=== PATIENT | female | born 2000 | race Caucasian/White ===

== ENCOUNTER → 2019-10-06 | Outpatient (CLI) | payer OTHER ==
--- NOTE | 2019-10-06 13:58 | REP ---
TRIPLE PHASE BONE SCAN OF THE LOWER LEGS: Following the intravenous administration of 22 millicuries of technetium 99m MDP, patient's lower legs are imaged in the flow phase, blood pool phase, and 3-hour delayed phases of imaging in multiple projections. There is no abnormal blood flow or blood pool noted. There is symmetrical osseous activity bilaterally with no scintigraphic abnormality. No stress fracture is seen. IMPRESSION: Negative triple phase bone scan of the lower legs. Electronically Signed by Boo Alcazar MD 10/06/2019 11:06 P
== END ==
LOC: M RAD 09:45
PROVIDERS: ATTEND Physician Assistant Surgical
DX: M79.661 Pain in right lower leg (principal); M79.662 Pain in left lower leg
CPT/HCPCS: 78315; A9503

== ENCOUNTER → 2021-02-14 | Outpatient (CLI) | payer OTHER ==
--- NOTE | 2021-02-15 15:20 | SLEEPCENT ---
DATE: 02/15/2021 ORDERED BY: Karley Case Nocturnal polysomnography was performed for evaluation of sleep physiology in this patient with a history of excessive somnolence and nonrestorative sleep. There was 7 hours and 40 minutes of data reviewed. There was 343.5 minutes of sleep identified. Sleep latency was short at 4.5 minutes. REM latency was also short at 52 minutes. Sleep architecture was fairly well preserved with four REM cycles. There was a period of wake between 3 and 4:14, resulting in reduced sleep efficiency of 76.2%. The electrocardiogram showed a sinus rhythm with an average heart rate of 68 beats per minute. EEG showed normal waveforms for wake and sleep. There were 36 respiratory events identified of 10 seconds in duration or greater for an apnea-hypopnea index of 6.3. The events were obstructive, not exclusive to sleep stage. More frequent in the supine posture; however, the entire study was done in the supine position. Arousals from respiratory events occurred 1.4 times per hour, and some activity was appreciated in the limb EMG leads, but no trains of events were seen. IMPRESSION: Mild, possibly positional obstructive sleep apnea syndrome (G47.33). Apnea-hypopnea index 6.3. RECOMMENDATION: Sleep positioning retraining for avoidance of the supine posture may be sufficient. If the patient's symptoms persist, then referral back to the sleep disorder center for pressure therapy should be considered. In the interim, alcohol and sedative avoidance should be practiced and caution exercised during the operation of motor vehicles.
== END ==
LOC: M SLEEP 20:00
PROVIDERS: ATTEND Nurse Practitioner Family
DX: G47.33 Obstructive sleep apnea (adult) (pediatric) (principal)

== ENCOUNTER → 2021-05-16 | Outpatient (CLI) | payer OTHER ==
--- NOTE | 2021-05-16 09:42 | REP ---
INDICATION: RUQ PAIN. COMPARISON: None. TECHNIQUE: Right upper quadrant sonogram. FINDINGS: Scanning through the right upper quadrant of the abdomen demonstrates a normal sized, thin-walled gallbladder without evidence of stone or polyp. Common bile duct is normal measuring 0.4 cm in greatest diameter. No focal liver lesion is seen. Liver size is normal. No pancreatic abnormality is observed. No right renal abnormality is seen. There is no evidence of ascites. The right kidney measures 11.6 x 5.5 x 4.4 cm. IMPRESSION: Negative right upper quadrant sonography. <Electronically signed by Juan C Gambino > 05/16/21 [id number]
== END ==
LOC: M RAD 09:06
PROVIDERS: ATTEND Internal Medicine Gastroenterology
DX: R10.11 Right upper quadrant pain (principal)

== ENCOUNTER 2021-06-05 21:02 | Emergency (ER) | payer OTHER ==
[~2021-06-05] VITALS: Ht 167.6 cm; Wt 97.3 kg
[2021-06-05] MEDS ORDERED: FLUO40CA PO (21:10)
[2021-06-06 00:56] LABS: BASO % 0.2 % (0.0-1.0); EOS # 0.1 10^3/uL (0.0-0.5); EOS % 0.4 % (0.0-3.0); HEMATOCRIT 40.1 % (36.0-47.0); HEMOGLOBIN 13.6 g/dl (12.0-15.5); LYMPH # 1.6 10^3/uL (1.5-5.0); LYMPH % 13.5 % (24.0-44.0); MEAN CORPUSCULAR HEMOGLOBIN 31.1 pg (27.0-33.0); MEAN CORPUSCULAR HGB CONC 33.9 g/dl (32.0-36.5); MEAN CORPUSCULAR VOLUME 91.6 fl (80.0-96.0); MONO # 0.7 10^3/uL (0.0-0.8); MONO % 6.1 % (2.0-8.0); NEUTROPHILS # 9.5 10^3/uL (1.5-8.5); NEUTROPHILS % 79.5 % (36.0-66.0); PLATELET COUNT, AUTOMATED 218 10^3/uL (150-450); RED BLOOD COUNT 4.38 10^6/uL (4.00-5.40)
[2021-06-06] MEDS ORDERED: KETOROLAC 30 MG/ML 1ML VIAL IV ONE (01:10)
[2021-06-06] MEDS ORDERED: ONDANSETRON 4MG/2ML VIAL IV ONE (01:10)
[2021-06-06 01:22] LABS: HCG, SERUM QUALITATIVE NEGATIVE (NEGATIVE)
[2021-06-06 01:27] LABS: ALBUMIN 3.5 GM/DL (3.2-5.2); ALT/SGPT 26 U/L (12-78); BILIRUBIN,DIRECT 0.1 MG/DL (0.0-0.2); BILIRUBIN,TOTAL 0.5 MG/DL (0.2-1.0); BLOOD UREA NITROGEN 12 MG/DL (7-18); CALCIUM LEVEL 8.7 MG/DL (8.5-10.1); CARBON DIOXIDE LEVEL 26 MEQ/L (21-32); CHLORIDE LEVEL 102 MEQ/L (98-107); CREATININE FOR GFR 0.62 MG/DL (0.55-1.30); GLOMERULAR FILTRATION RATE > 60.0 (>60); GLUCOSE, FASTING 113 MG/DL (70-100); LIPASE 127 U/L (73-393); POTASSIUM SERUM 3.9 MEQ/L (3.5-5.1); SODIUM LEVEL 135 MEQ/L (136-145); TOTAL PROTEIN 7.4 GM/DL (6.4-8.2)
[2021-06-06] MEDS ORDERED: ISOVUE-370 76% 100ML VIAL As Ordered ONE (01:33)
--- NOTE | 2021-06-06 03:00 | REPVR ---
PROCEDURE INFORMATION: Exam: CT Abdomen And Pelvis With Contrast Exam date and time: 06/06/2021 1:09 AM Age: 20 years old Clinical indication: Abdominal pain; Localized; Left; Additional info: Abdominal pain left side TECHNIQUE: Imaging protocol: Computed tomography of the abdomen and pelvis with contrast. Radiation optimization: All CT scans at this facility use at least one of these dose optimization techniques: automated exposure control; mA and/or kV adjustment per patient size (includes targeted exams where dose is matched to clinical indication); or iterative reconstruction. Contrast material: ISO; Contrast volume: 100 ml; Contrast route: INTRAVENOUS (IV); COMPARISON: Abdomen, limited US 05/16/2021 9:11 AM FINDINGS: Liver: There is low attenuation adjacent to the falciform ligament of the liver consistent with focal fatty infiltration. Gallbladder and bile ducts: Normal. No calcified stones. No ductal dilation. Pancreas: Normal. No ductal dilation. Spleen: Normal. No splenomegaly. Adrenal glands: Normal. No mass. Kidneys and ureters: Normal. No hydronephrosis. Stomach and bowel: The gastric antrum is collapsed with question of some wall thickening and slight adjacent edema and antral gastritis is not excluded. There is pericolonic edema and wall thickening in the proximal descending colon with suggestion of underlying diverticula projecting anteromedially and anteriorly and is consistent with mild diverticulitis of the proximal descending colon although significant diverticulosis of the colon is not seen. There is a collection of fat along the anterolateral aspect of the colon and appendagitis is not excluded but is thought to be less likely by the overall appearance. Appendix: A normal appendix is seen. Intraperitoneal space: No free fluid or free air. Vasculature: Unremarkable. No abdominal aortic aneurysm. Lymph nodes: Unremarkable. No enlarged lymph nodes. Urinary bladder: Unremarkable as visualized. Reproductive: There is an IUD in the uterus. There is a small left ovarian follicle measuring 15 mm. Bones/joints: Unremarkable. No acute fracture. Soft tissues: Unremarkable. IMPRESSION: 1. Segmental colonic wall thickening with edema of pericolonic fat in the proximal descending colon with suggestion of some ill-defined diverticula projecting anteriorly suggesting mild diverticulitis of the proximal descending colon. Appendagitis is thought to be less likely. 2. Collapsed gastric antrum with question of slight wall thickening and antral gastritis is not excluded. 3. IUD in the uterus. Electronically signed by: Phil Murdock On 06/06/2021 02:59:58 AM
[2021-06-06] MEDS ORDERED: AUGM875T28 PO (03:20)
[2021-06-06] MEDS ORDERED: AUGMENTIN 875 MG TAB PO ONE (03:25)
[2021-06-06 03:54] VITALS: BP 115/60
== END 2021-06-06 04:07 | disposition home or self-care (01) ==
LOC: M ED 21:02
DX: K57.32 Diverticulitis of large intestine without perforation or abscess without bleeding (principal); R51.9 Headache, unspecified; R11.0 Nausea; R19.7 Diarrhea, unspecified; R10.12 Left upper quadrant pain; R10.32 Left lower quadrant pain; R10.84 Generalized abdominal pain; R10.11 Right upper quadrant pain; K82.8 Other specified diseases of gallbladder; Z97.5 Presence of (intrauterine) contraceptive device
CPT/HCPCS: 74177; 80048; 80076; 81001; 83690; 84703; 85025; 87086; 96374; 96375; 99284; J1885; J2405; Q9967

== ENCOUNTER → 2021-06-06 | Outpatient (CLI) | payer OTHER ==
[~2021-06-06] MED LIST: AUGM875T28 PO; FLUO40CA PO
--- NOTE | 2021-06-06 10:54 | REP ---
INDICATION: OTH DISEASES OF GB. COMPARISON: None. TECHNIQUE/RADIOTRACER AND DOSE: After the intravenous administration of 5.6 mCi of technetium 99 M Choletec hepatobiliary imaging was performed with gallbladder ejection fraction calculation FINDINGS: There is symmetric distribution of the radiotracer throughout the hepatocytes. The gallbladder is promptly visualized at 15 minutes. Biliary to bowel transit is normal. The gallbladder ejection fraction calculation is 69%. IMPRESSION: Normal exam. <Electronically signed by Eddi Ricci > 06/06/21 [id number]
== END ==
LOC: M RAD 07:51
PROVIDERS: ATTEND Internal Medicine Gastroenterology
DX: R10.11 Right upper quadrant pain (principal); K82.8 Other specified diseases of gallbladder
CPT/HCPCS: 78227; A9537